=== PATIENT | female | born 1940 | race Caucasian/White ===

== ENCOUNTER 2022-02-13 07:50 | Outpatient (CLI) | payer MEDICARE, SELFPAY | END 2022-02-13 07:51 | disposition home or self-care (01) | LOC: FRMREF 02-20 10:00 | PROVIDERS: PCP Physician Assistant Medical; Visit Provider Physician Assistant Medical | DX: R30.0 Dysuria (principal); N39.0 Urinary tract infection, site not specified; N30.00 Acute cystitis without hematuria | CPT/HCPCS: 87086 ==

== ENCOUNTER 2022-03-24 10:15 | Outpatient (CLI) | payer MEDICARE, SELFPAY ==
--- NOTE | 2022-03-24 10:45 | CRLHL7_ITS ---
For Patients: As a result of the Cures Act, medical imaging exams and procedure reports are released immediately into your electronic medical record. You may view this report before your referring provider. If you have questions, please contact your health care provider. DIGITAL DIAGNOSTIC RIGHT MAMMOGRAM USING TOMOSYNTHESIS AND COMPUTER-AIDED DETECTION CLINICAL HISTORY: RIGHT breast lumpectomy follow-up. COMPARISON: 09/04/2021. TECHNIQUE: Digital RIGHT mammogram in three projections. Tomosynthesis and CAD utilized. BREAST COMPOSITION: There are areas of scattered fibroglandular density. FINDINGS: Postlumpectomy changes are present. Skin thickening noted presumably from radiation therapy. Benign calcifications. Surgical clips. No suspicious masses. No fluid collections. IMPRESSION: Post treatment changes RIGHT breast. RECOMMENDATIONS: Routine screening mammography. Results and recommendations discussed with the patient. BI-RADS Category 2: Benign A lay language report of this examination will be provided to the patient. Dictated by Porfirio Romero MD @ 03/24/2022 11:49:10 AM jj/Dictated by: Porfirio Romero MD @ 03/24/2022 11:49:00 AM (Electronically Signed)
== END 2022-03-24 10:16 | disposition home or self-care (01) ==
LOC: MAMMO 10:15
PROVIDERS: PCP Physician Assistant Medical; Visit Provider Internal Medicine Hematology & Oncology
DX: C50.911 Malignant neoplasm of unspecified site of right female breast (principal)
CPT/HCPCS: 77065; G0279

== ENCOUNTER 2022-07-01 15:02 | Outpatient (CLI) | payer MEDICARE, SELFPAY ==
[2022-07-01 12:35] LABS: Albumin* 4.1 g/dL (3.3-5.0); Chloride* 105 mmol/L (96-114)
[2022-07-01 12:36] LABS: Potassium* 4.5 mmol/L (3.6-5.1); Sodium* 138 mmol/L (135-149)
[2022-07-01 12:38] LABS: Aspartate Amino Transferase* 33 U/L (12-35); Bilirubin Total* 0.6 mg/dL (0.1-1.5); Carbon Dioxide* 27 mmol/L (20-32); Cholesterol* 261 mg/dL (90-199); Creatinine* 0.9 mg/dL (0.5-1.5); Estimated Glomerular Filt Rate 65 ml/min; Total Protein* 7.1 g/dL (6.0-8.3)
[2022-07-01 12:39] LABS: Alanine Aminotransferase* 28 U/L (4-35); Alkaline Phosphatase* 64 U/L (40-150); Blood Urea Nitrogen* 19 mg/dL (7-30); Calcium* 9.5 mg/dL (8.4-10.6); Glucose* 86 mg/dL (60-115); HDL Cholesterol* 63 mg/dL (>=50); LDL Cholesterol Calculated 163 mg/dL (<100); Triglycerides* 173 mg/dL (40-149)
== END 2022-07-01 15:03 | disposition home or self-care (01) ==
PROVIDERS: PCP Physician Assistant Medical; Visit Provider Physician Assistant Medical
DX: Z00.00 Encounter for general adult medical examination without abnormal findings (principal); E78.5 Hyperlipidemia, unspecified; I10 Essential (primary) hypertension; Z13.29 Encounter for screening for other suspected endocrine disorder
CPT/HCPCS: 80053; 80061; 84443

== ENCOUNTER 2022-08-04 10:02 | Outpatient (CLI) | payer MEDICARE, SELFPAY ==
--- NOTE | 2022-08-04 10:15 | CRLHL7_ITS ---
For Patients: As a result of the Cures Act, medical imaging exams and procedure reports are released immediately into your electronic medical record. You may view this report before your referring provider. If you have questions, please contact your health care provider. BILATERAL SCREENING MAMMOGRAM WITH COMPUTER-AIDED DETECTION AND TOMOSYNTHESIS TECHNIQUE: CC and MLO views were obtained. These mammographic images have been obtained using full-field digital technique. These mammographic images were interpreted with the benefit of computer-aided detection. Breast Tomosynthesis was used in this interpretation. COMPARISON FILM: 07/30/21, 07/05/20, 06/15/19. FINDINGS: There are scattered areas of fibroglandular density IMPRESSION: There is no radiographic evidence for malignancy. ASSESSMENT: BI-RADS Category 2: Benign RECOMMENDATION: Routine screening mammogram in 1 year. A lay language report of this examination will be provided to the patient. ROGERIO DELGADO MD Diagnostic/Nuclear Medicine Radiologist [email or web address] BEHZAD/bhe be/Dictated by: Rogerio Delgado MD @ 08/04/2022 11:35:00 AM (Electronically Signed)
== END 2022-08-04 10:03 | disposition home or self-care (01) ==
LOC: MAMMO 10:03
PROVIDERS: PCP Physician Assistant Medical; Visit Provider Physician Assistant Medical
DX: Z12.31 Encounter for screening mammogram for malignant neoplasm of breast (principal)
CPT/HCPCS: 77063; 77067

== ENCOUNTER 2023-03-26 11:49 | Outpatient (CLI) | payer MEDICARE, SELFPAY | END 2023-03-26 11:50 | disposition home or self-care (01) | LOC: NFLDREF 03-29 11:42 | PROVIDERS: PCP Physician Assistant Medical; Referring Provider Physician Assistant Medical; Visit Provider Nurse Practitioner Family | DX: R30.0 Dysuria (principal); N39.0 Urinary tract infection, site not specified | CPT/HCPCS: 87086; 87186 ==

== ENCOUNTER 2023-05-17 10:00 | Outpatient (RCR) | payer MEDICARE, SELFPAY | END 2023-06-02 23:59 | disposition home or self-care (01) | LOC: CCIC 10:00 | PROVIDERS: PCP Physician Assistant Medical; Visit Provider Physician Assistant | DX: C50.411 Malignant neoplasm of upper-outer quadrant of right female breast (principal); Z17.0 Estrogen receptor positive status [ER+]; N39.0 Urinary tract infection, site not specified | CPT/HCPCS: 99212; 99213; 99214 ==

== ENCOUNTER 2023-06-14 10:14 | Outpatient (CLI) | payer MEDICARE, SELFPAY | END 2023-06-14 10:15 | disposition home or self-care (01) | PROVIDERS: PCP Physician Assistant Medical; Referring Provider Physician Assistant Medical; Visit Provider Physician Assistant Medical | DX: R30.0 Dysuria (principal); N39.0 Urinary tract infection, site not specified | CPT/HCPCS: 87086 ==

== ENCOUNTER 2023-07-23 07:40 | Outpatient (CLI) | payer MEDICARE, SELFPAY | END 2023-07-23 07:41 | disposition home or self-care (01) | LOC: NFLDREF 20:29 | PROVIDERS: PCP Physician Assistant Medical; Referring Provider Physician Assistant Medical; Visit Provider Physician Assistant Medical | DX: E78.2 Mixed hyperlipidemia (principal); I10 Essential (primary) hypertension; Z13.29 Encounter for screening for other suspected endocrine disorder | CPT/HCPCS: 80053; 80061; 84443 ==

== ENCOUNTER 2023-07-28 14:45 | Outpatient (CLI) | payer MEDICARE, SELFPAY | END 2023-07-28 14:46 | disposition home or self-care (01) | LOC: NFLDREF 07-29 07:17 | PROVIDERS: PCP Physician Assistant Medical; Referring Provider Physician Assistant Medical; Visit Provider Physician Assistant Medical | DX: N39.0 Urinary tract infection, site not specified (principal); R35.0 Frequency of micturition | CPT/HCPCS: 87086 ==

== ENCOUNTER 2023-08-09 15:07 | Outpatient (CLI) | payer MEDICARE, SELFPAY ==
--- NOTE | 2023-08-09 15:20 | MM_ITS ---
Patient: MELIZA ROWLEY Facility:?[facility] Patient ID:?[id number] Site Patient ID:?[id number]. Site :?[id number] Study:?XRay-Breast Bilateral 3D W/CAD-08/09/2023 3:43:40 PM Ordering Physician:Tarun Adams Final Report: BILATERAL SCREENING MAMMOGRAM WITH COMPUTER-AIDED DETECTION AND TOMOSYNTHESIS TECHNIQUE: CC and MLO views were obtained. These mammographic images have been obtained using full-field digital technique. These mammographic images were interpreted with the benefit of computer-aided detection. Breast Tomosynthesis was used in this interpretation. COMPARISON FILM: 08/04/22, 03/24/22, 09/04/21. FINDINGS: There are scattered areas of fibroglandular density. IMPRESSION: There is no radiographic evidence for malignancy. ASSESSMENT: BI-RADS Category 2: Benign RECOMMENDATION: Routine screening mammogram in 1 year. A lay language report of this examination will be provided to the patient. Porfirio Romero M.D. Diagnostic Radiologist [email or web address] DSM/sp R& Transcribed: 6:40 p.m. SP/Dictated by: Porfirio Rmoero MD @ 08/10/2023 8:50:00 AM Signed by:?Porfirio Romero MD @08/11/2023 5:43:19 AM (Electronic Signature)
== END 2023-08-09 15:08 | disposition home or self-care (01) ==
PROVIDERS: PCP Physician Assistant Medical; Visit Provider Physician Assistant Medical
DX: Z12.31 Encounter for screening mammogram for malignant neoplasm of breast (principal)
CPT/HCPCS: 77063; 77067

== ENCOUNTER 2023-08-23 10:29 | Outpatient (CLI) | payer MEDICARE, SELFPAY | END 2023-08-23 10:30 | disposition home or self-care (01) | LOC: NFLDREF 08-25 11:40 | PROVIDERS: PCP Physician Assistant Medical; Referring Provider Physician Assistant Medical; Visit Provider Physician Assistant Medical | DX: N39.0 Urinary tract infection, site not specified (principal); N30.00 Acute cystitis without hematuria; I10 Essential (primary) hypertension | CPT/HCPCS: 87086; 87186 ==

== ENCOUNTER 2023-11-08 12:46 | Outpatient (RCR) | payer MEDICARE, SELFPAY | END 2024-05-06 23:59 | disposition home or self-care (01) | LOC: CCIC 12:46 | PROVIDERS: PCP Physician Assistant Medical; Visit Provider Physician Assistant | DX: C50.411 Malignant neoplasm of upper-outer quadrant of right female breast (principal); Z17.0 Estrogen receptor positive status [ER+]; I10 Essential (primary) hypertension | CPT/HCPCS: 99213; G0463 ==

== ENCOUNTER 2024-05-11 13:10 | Outpatient (RCR) | payer MEDICARE, SELFPAY | END 2024-11-07 23:59 | disposition home or self-care (01) | LOC: CCIC 13:10 | PROVIDERS: PCP Physician Assistant Medical; Visit Provider Physician Assistant | DX: C50.411 Malignant neoplasm of upper-outer quadrant of right female breast (principal); Z17.0 Estrogen receptor positive status [ER+]; L98.9 Disorder of the skin and subcutaneous tissue, unspecified | CPT/HCPCS: 99213; G0463 ==

== ENCOUNTER 2024-08-10 10:00 | Outpatient (CLI) | payer MEDICARE, SELFPAY | END 2024-08-10 10:01 | disposition home or self-care (01) | LOC: MAMMO 10:01 | PROVIDERS: PCP Physician Assistant Medical; Visit Provider Physician Assistant Medical | DX: Z12.31 Encounter for screening mammogram for malignant neoplasm of breast (principal) | CPT/HCPCS: 77063; 77067 ==

== ENCOUNTER 2024-10-19 07:33 | Outpatient (CLI) | payer MEDICARE, SELFPAY | END 2024-10-19 07:34 | disposition home or self-care (01) | LOC: NFLDREF 10-26 22:10 | PROVIDERS: PCP Physician Assistant Medical; Referring Provider Physician Assistant Medical; Visit Provider Physician Assistant Medical | DX: I10 Essential (primary) hypertension (principal); E78.2 Mixed hyperlipidemia | CPT/HCPCS: 80053; 80061; 84443 ==

== ENCOUNTER 2024-11-09 13:47 | Outpatient (CLI) | payer MEDICARE, SELFPAY ==
--- NOTE | 2024-11-09 14:00 | CRLHL7_ITS ---
For Patients: As a result of the Century Cures Act, medical imaging exams and procedure reports are released immediately into your electronic medical record. You may view this report before your referring provider. If you have questions, please contact your health care provider. DXA BONE MINERAL DENSITY STUDY Current height (in): 66.5. Weight (lb): 140. Menopause age: 57. Ethnicity: White. 1. Have you had a previous hip or vertebral fracture? No. 2. Have you had any fractures during your adult life which did not result from significant trauma (e.g., auto accident)? No. 3. Did either of your parents have a hip fracture? No. 4. Do you smoke? No. 5. Have you ever taken Glucocorticoids? No. 6. Do you have rheumatoid arthritis? No. 7. Do you have secondary osteoporosis? No. 8. Do you drink 3 or more alcoholic drinks per day? No. 9. Are you being treated for osteoporosis? No. 10. Have you ever taken any of the following medications: Actonel, Evista, Fosamax, Miacalcin, Reclast, Boniva, Forteo, HRT (i.e. estrogen/hormone therapy), Protelos, Prolia, Vitamin D, Calcium, other ??? please specify. ANSWER: No. 11. Do you have any of the following medical conditions: Anorexia or bulimia, asthma or emphysema, end stage renal disease, hyperparathyroidism, any seizure disorders, cancer, inflammatory bowel diseases, hysterectomy, other ??? please specify. ANSWER: Yes, Cancer. 12. What was your maximum height (inches)? 67.5. 13. Do you perform weight bearing exercise regularly? No. 14. Do you regularly consume dairy products? Yes. 15. Do you drink caffeinated beverages? Yes. 16. At what age did your period start? 14. 17. Are you premenopausal? No. 18. How many full term pregnancies have you had? 4. 19. Have you ever missed your period for more than 6 months in a row (not including or menopause)? No. TECHNIQUE: Bone mineral density study was performed using the [employer]. FINDINGS: The results of the study expressed as bone mineral density (BMD) are as follows: Lumbar spine L1 to L4: BMD: 1.020 g/cm2. T-score: -0.2. Z-score: 2.5. Neck Left: BMD: 0.568 g/cm2. T-score: -2.5. Z-score: -0.1. Right: BMD: 0.594 g/cm2. T-score: -2.3. Z-score: 0.1. Total Left: BMD: 0.654 g/cm2. T-score: -2.4. Z-score: -0.1. Right: BMD: 0.720 g/cm2. T-score: -1.8. Z-score: 0.4. IMPRESSION: Osteoporosis. COMPARISON: Compared with scan of 02/22/2017, the bone mineral density has decreased by 2.8 percent at the spine and decreased by 3.5 percent at the hip. Compared with scan of 11/30/2013, the bone mineral density has increased by 1.3 percent at the spine and decreased by 2.1 percent at the hip. Porfirio Romero M.D. Diagnostic Radiologist [email or web address] YOSSI/robbie DW/Dictated by: Porfirio Romero MD @ 11/13/2024 9:09:00 AM (Electronically Signed)
== END 2024-11-09 13:48 | disposition home or self-care (01) ==
LOC: RAD 13:48
PROVIDERS: PCP Physician Assistant Medical; Visit Provider Physician Assistant Medical
DX: M85.80 Other specified disorders of bone density and structure, unspecified site (principal); M81.0 Age-related osteoporosis without current pathological fracture
CPT/HCPCS: 77080

== ENCOUNTER 2024-12-06 13:36 | Outpatient (CLI) | payer MEDICARE, SELFPAY | END 2024-12-06 13:37 | disposition home or self-care (01) | LOC: NFLDREF 12-10 05:48 | PROVIDERS: PCP Physician Assistant Medical; Referring Provider Physician Assistant Medical; Visit Provider Nurse Practitioner Family | DX: R30.0 Dysuria (principal); N39.0 Urinary tract infection, site not specified; R35.0 Frequency of micturition | CPT/HCPCS: 87086; 87186 ==

== ENCOUNTER 2025-02-01 07:55 | Outpatient (CLI) | payer MEDICARE, SELFPAY | END 2025-02-01 07:56 | disposition home or self-care (01) | LOC: NFLDREF 02-03 23:03 | PROVIDERS: PCP Physician Assistant Medical; Referring Provider Physician Assistant Medical; Visit Provider Nurse Practitioner Family | DX: N39.0 Urinary tract infection, site not specified (principal); B96.20 Unspecified Escherichia coli [E. coli] as the cause of diseases classified elsewhere | CPT/HCPCS: 87086 ==

== ENCOUNTER 2025-03-15 10:19 | Outpatient (CLI) | payer MEDICARE, SELFPAY | END 2025-03-15 10:20 | disposition home or self-care (01) | LOC: NFLDREF 23:07 | PROVIDERS: PCP Physician Assistant Medical; Referring Provider Physician Assistant Medical | DX: R35.0 Frequency of micturition (principal); N39.0 Urinary tract infection, site not specified | CPT/HCPCS: 87086 ==

== ENCOUNTER 2025-05-07 13:30 | Outpatient (RCR) | payer MEDICARE, SELFPAY | END 2025-05-15 23:59 | disposition home or self-care (01) | LOC: CCIC 13:30 | PROVIDERS: PCP Physician Assistant Medical; Visit Provider Internal Medicine Hematology & Oncology | DX: C50.411 Malignant neoplasm of upper-outer quadrant of right female breast (principal); Z17.0 Estrogen receptor positive status [ER+] | CPT/HCPCS: 99213; 99214; G0463 ==

== ENCOUNTER 2025-05-16 08:10 | Outpatient (CLI) | payer MEDICARE, SELFPAY | END 2025-05-16 08:11 | disposition home or self-care (01) | LOC: NFLDREF 05-21 18:57 | PROVIDERS: PCP Physician Assistant Medical; Referring Provider Physician Assistant Medical; Visit Provider Physician Assistant Medical | DX: N39.0 Urinary tract infection, site not specified (principal) | CPT/HCPCS: 87086 ==